=== PATIENT | female | born 2000 | race Hispanic/Latino ===

== ENCOUNTER 2023-01-27 15:43 | Inpatient (IN) | payer OTHER, SELFPAY ==
--- NOTE | 2023-01-27 16:13 | ER ---
Nurse's Notes [facility] Name: Sujey Cardoso Age: 22 yrs Sex: Female : 2000 Arrival Date: 01/27/2023 Time: 15:43 Bed 16 Private MD: Diagnosis: Perirectal abscess Presentation: 01/27 15:57 Chief complaint: Patient states: Rectal pain that began Monday evening. Pt was ss prescribed hydrocortisone cream Monday by PCP, but does not seem to be helping. Coronavirus screen: Client denies travel out of the [place] in the last 14 days. Ebola Screen: Patient denies exposure to infectious person. Patient denies travel to an Ebola-affected area in the 21 days before illness onset. Initial Sepsis Screen: Does the patient meet any 2 criteria? No. Patient's initial sepsis screen is negative. Does the patient have a suspected source of infection? No. Patient's initial sepsis screen is negative. Risk Assessment: Do you want to hurt yourself or someone else? Patient reports no desire to harm self or others. Onset of symptoms was January 24, 2023. 15:57 Method Of Arrival: Ambulatory ss 15:57 Acuity: DONN 4 ss Historical: - Allergies: 15:58 Zithromax; ss - Immunization history:: Adult Immunizations unknown. - Social history:: Smoking status: unknown. Screenin:53 [facility] ED Fall Risk Assessment (Adult) History of falling in the last 3 months, nj1 including since admission No falls in past 3 months (0 pts) Confusion or Disorientation No (0 pts) Intoxicated or Sedated No (0 pts) Impaired Gait No (0 pts) Mobility Assist Device Used No (0 pt) Altered Elimination No (0 pt) Score/Fall Risk Level 0 - 2 = Low Risk Oriented to surroundings, Maintained a safe environment, Hourly rounding (assess needs \T\ fall precautionary measures) done. Abuse screen: Denies threats or abuse. Denies injuries from another. Nutritional screening: No deficits noted. Tuberculosis screening: No symptoms or risk factors identified. Assessment: 16:49 General: Appears in no apparent distress. comfortable, Behavior is calm, cooperative, nj1 appropriate for age. Pain: Complains of pain in Rectum Pain currently is 3 out of 10 on a pain scale. at worst was 10 out of 10 on a pain scale. Alleviated by rest, Aggravated by exercise. Neuro: Level of Consciousness is awake, alert, obeys commands, Oriented to person, place, time, situation. Cardiovascular: Patient's skin is warm and dry. Respiratory: Airway is patent Respiratory effort is even, unlabored. GI: Reports since Monday Rectal pain. 17:45 Reassessment: Patient appears in no apparent distress at this time. No changes from [facility] previously documented assessment. Patient and/or family updated on plan of care and expected duration. Pain level reassessed. Patient is alert, oriented x 3, equal unlabored respirations, skin warm/dry/pink. 18:28 Reassessment: Patient appears in no apparent distress at this time. No changes from [facility] previously documented assessment. Patient and/or family updated on plan of care and expected duration. Pain level reassessed. Patient is alert, oriented x 3, equal unlabored respirations, skin warm/dry/pink. 19:30 Reassessment: Patient appears in no apparent distress at this time. Patient and/or nj1 family updated on plan of care and expected duration. Pain level reassessed. Patient is alert, oriented x 3, equal unlabored respirations, skin warm/dry/pink. Vital Signs: 15:57 BP 97 / 67; Pulse 91; Resp 14; Temp 98; Pulse Ox 98% ; ss 16:54 BP 106 / 57; Pulse 77; Resp 16; Pulse Ox 100% ; Pain 3/10; nj1 18:15 BP 119 / 66; Pulse 81; Resp 16; Pulse Ox 100% ; Pain 6/10; nj1 19:30 BP 116 / 60; Pulse 77; Resp 17; Pulse Ox 100% on R/A; Pain 5/10; nj1 20:57 BP 103 / 58; Pulse 91; Resp 16; Temp 99(O); Pulse Ox 100% ; nj1 16:54 Pain Scale: Adult nj1 18:15 Pain Scale: Adult nj1 19:30 Pain Scale: Adult nj1 ED Course: 15:44 Patient arrived in ED. am2 15:48 Jony Castillo MD is Attending Physician. rn 15:49 Attending Physician role handed off by Jony Castillo MD rt 15:49 Ayo Olivera MD is Attending Physician. rt 15:58 Triage completed. ss 15:58 Arm band placed on right wrist. ss 15:59 Rubio, Aracelis, RN is Primary Nurse. nj1 16:38 Initial lab(s) drawn, by ne, sent to lab. Inserted saline lock: 22 gauge in left [facility] antecubital area, using aseptic technique. Blood collected. 16:38 Test, Serum Sent. mb4 16:38 CMP Sent. 4 16:38 CBC with Diff Sent. 4 16:53 Provided Education on: fall precautions. nj1 16:53 Patient has correct armband on for positive identification. Bed in low position. Call [facility] light in reach. 17:43 CT Abd/Pelvis - IV Contrast Only In Process Unspecified. EDMS 18:08 Rom Peterson MD is Hospitalizing Provider. rt 18:27 Ptt, Activated Sent. 4 18:27 Protime (+inr) Sent. 4 18:27 Lactate w/ 2H reflex if indic. Sent. [facility] 20:20 No provider procedures requiring assistance completed. Patient admitted, IV remains in [facility] place. Administered Medications: 18:28 Drug: NS 0.9% IV 1000 ml Route: IV; Rate: 1 bolus; Site: left antecubital; [facility] 20:00 Follow up: Response: No adverse reaction; IV Status: Completed infusion; IV Intake: [facility] 1000ml 19:14 Drug: Piperacillin-Tazobactam IVPB 3.375 grams Route: IVPB; Infused Over: 60 mins; [facility] Site: left antecubital; 21:15 Follow up: Response: No adverse reaction; IV Status: Infusion continued upon admission; [facility] IV Intake: 50ml Medication: 20:20 VIS not applicable for this client. [facility] Intake: 20:00 IV: 1000ml; Total: 1000ml. [facility] 21:15 IV: 50ml; Total: 1050ml. [facility] Outcome: 16:12 Discharge ordered by . rt 18:08 Decision to Hospitalize by Provider. rt 21:16 Admitted to Tele accompanied by tech, via wheelchair, room 408, Report called to Nurse tati Nicole 21:16 Condition: stable 21:16 Instructed on the need for admit. 21:16 Patient left the ED. [facility] Signatures: Dispatcher [employer] EDAZ Jony Castillo MD MD rn Blanchard, Shelby, RN RN Connie Aguilar am2 Angeli [id number] Ayo Olivera MD MD rt Aracelis Bergeron RN RN nj1 Corrections: (The following items were deleted from the chart) 18:28 18:15 Pulse 81bpm; Pulse Ox 100%; nj1 nj1 18:29 18:15 Pulse 81bpm; Resp 16bpm; Pulse Ox 100%; Pain 6, Adult; nj1 nj1
--- NOTE | 2023-01-27 16:13 | EDPHYS ---
Physician Documentation [facility] Name: Sujey Cardoso Age: 22 yrs Sex: Female : 2000 Arrival Date: 01/27/2023 Time: 15:43 Bed 16 Private MD: ED Physician Ayo Olivera HPI: 01/27 17:45 This 22 yrs old Female presents to ER via Ambulatory with complaints of Rectal rt Pain. 17:45 Patient presents to the ED with rectal pain since Monday. She did state that she rt noticed a bump at that area. Was prescribed a topical corticosteroid, states no relief to that. Pain is worsened since that time. Denies fever, chills. She states that is difficult for her to sit down due to the pain. Symptoms are aching nature, nonradiating, moderate severity, no other aggravating alleviating factors.. Historical: - Allergies: 15:58 Zithromax; ss - Immunization history:: Adult Immunizations unknown. - Social history:: Smoking status: unknown. ROS: 17:45 Constitutional: Negative for fever, chills, and weight loss, Cardiovascular: Negative rt for chest pain, palpitations, and edema, Respiratory: Negative for shortness of breath, cough, wheezing, and pleuritic chest pain, Skin: Negative for injury, rash, and discoloration, Neuro: Negative for headache, weakness, numbness, tingling, and seizure, Psych: Negative for depression, anxiety, suicide ideation, homicidal ideation, and hallucinations. 17:45 Abdomen/GI: Positive for Rectal pain, constipation. 17:45 : Exam: 17:45 Constitutional: This is a well developed, well nourished patient who is awake, alert, rt and in no acute distress. Head/Face: Normocephalic, atraumatic. Chest/axilla: Normal chest wall appearance and motion. Nontender with no deformity. No lesions are appreciated. Cardiovascular: Regular rate and rhythm with a normal S1 and S2. No gallops, murmurs, or rubs. Normal PMI, no JVD. No pulse deficits. Respiratory: Lungs have equal breath sounds bilaterally, clear to auscultation and percussion. No rales, rhonchi or wheezes noted. No increased work of breathing, no retractions or nasal flaring. Skin: Warm, dry with normal turgor. Normal color with no rashes, no lesions, and no evidence of cellulitis. MS/ Extremity: Pulses equal, no cyanosis. Neurovascular intact. Full, normal range of motion. Neuro: Awake and alert, GCS 15, oriented to person, place, time, and situation. Cranial nerves II-XII grossly intact. Motor strength 5/5 in all extremities. Sensory grossly intact. Cerebellar exam normal. Normal gait. Psych: Awake, alert, with orientation to person, place and time. Behavior, mood, and affect are within normal limits. 17:45 Abdomen/GI: No abdominal tenderness, small external hemorrhoid, no palpable internal hemorrhoids, brown hard stool in rectal vault. Vital Signs: 15:57 BP 97 / 67; Pulse 91; Resp 14; Temp 98; Pulse Ox 98% ; ss 16:54 BP 106 / 57; Pulse 77; Resp 16; Pulse Ox 100% ; Pain 3/10; nj1 18:15 BP 119 / 66; Pulse 81; Resp 16; Pulse Ox 100% ; Pain 6/10; nj1 19:30 BP 116 / 60; Pulse 77; Resp 17; Pulse Ox 100% on R/A; Pain 5/10; nj1 20:57 BP 103 / 58; Pulse 91; Resp 16; Temp 99(O); Pulse Ox 100% ; nj1 16:54 Pain Scale: Adult nj1 18:15 Pain Scale: Adult nj1 19:30 Pain Scale: Adult nj1 MDM: 15:48 Patient medically screened. rn 18:08 Differential diagnosis: hemorrhoids, abscess. Data reviewed: vital signs, nurses notes, rt lab test result(s), radiologic studies. Consideration of Admission/Observation Patient was admitted/placed on observation. Management of patient was discussed with the following: [employer]: Discussed with surgery on-call, recommends antibiotics, will operate in the morning. Counseling: I had a detailed discussion with the patient and/or guardian regarding: the historical points, exam findings, and any diagnostic results supporting the discharge/admit diagnosis, lab results, radiology results, the need for further work-up and treatment in the hospital. 18:09 ED course: Patient's initial presentation was thought to be due to a hemorrhoid as rt opposed to an infectious etiology, once CT scan resulted showing an abscess, lactate, blood cultures were ordered, antibiotics to be given.. 01/27 16:21 Order name: CBC with Diff; Complete Time: 17:29 rt 01/27 16:21 Order name: CMP; Complete Time: 17:29 rt 01/27 16:21 Order name: Test, Serum; Complete Time: 17:29 rt 01/27 18:07 Order name: Blood Culture Adult (2) rt 01/27 18:07 Order name: Lactate w/ 2H reflex if indic. rt 01/27 18:07 Order name: Protime (+inr) rt 01/27 18:07 Order name: Ptt, Activated rt 01/27 17:32 Order name: CT Abd/Pelvis - IV Contrast Only; Complete Time: 17:53 rt 01/27 18:07 Order name: EKG; Complete Time: 18:08 rt 01/27 18:07 Order name: Cardiac monitoring; Complete Time: 19:19 rt 01/27 18:07 Order name: EKG - Nurse/Tech; Complete Time: 19:19 rt 01/27 18:07 Order name: IV Saline Lock - Large Bore; Complete Time: 18:14 rt 01/27 18:07 Order name: Labs collected and sent; Complete Time: 18:28 rt 01/27 18:07 Order name: O2 Per Protocol; Complete Time: 18:14 rt 01/27 18:07 Order name: O2 Sat Monitoring; Complete Time: 18:14 rt 01/27 18:07 Order name: Vital Signs; Complete Time: 18:28 rt Administered Medications: 18:28 Drug: NS 0.9% IV 1000 ml Route: IV; Rate: 1 bolus; Site: left antecubital; [facility] 20:00 Follow up: Response: No adverse reaction; IV Status: Completed infusion; IV Intake: nj1 1000ml 19:14 Drug: Piperacillin-Tazobactam IVPB 3.375 grams Route: IVPB; Infused Over: 60 mins; [facility] Site: left antecubital; 21:15 Follow up: Response: No adverse reaction; IV Status: Infusion continued upon admission; [facility] IV Intake: 50ml Disposition Summary: 01/27/23 18:08 Hospitalization Ordered Hospitalization Status: Observation rt Provider: Rom Peterson rt Location: Telemetry/MedSurg (observation)(01/27/23 18:08) rt Condition: Stable(07/21/23 18:08) rt Problem: new(01/27/23 18:08) rt Symptoms: are unchanged(01/27/23 18:08) rt Bed/Room Type: Standard rt Room Assignment: 408(01/27/23 19:02) cg Diagnosis - Perirectal abscess rt Forms: - Medication Reconciliation Form rt - SBAR form rt Signatures: Dispatcher [employer] Jony Mena MD MD rn Blanchard, Shelby, RN RN ss Chrissy Cardoso RN RN cg Ayo Olivera MD MD rt Aracelis Bergeron RN RN nj1 Corrections: (The following items were deleted from the chart) 16:20 16:12 Home rt rt 16:20 16:12 new rt rt 16:20 16:12 have improved rt rt 16:20 16:12 Stable rt rt 16:20 16:12 Unspecified hemorrhoids rt rt 17:41 16:22 Pelvis W/Cont+CT.RAD.BRZ ordered. EDME EDMS 19:02 18:08 rt cg
[2023-01-27 16:50] LABS: Absolute Lymphocytes (CBC) 1.6 K/uL (0.7-4.9); Hematocrit 38.6 % (36.0-45.0); Lymphocytes % 9.5 % (15.3-44.8); MPV 8.1 fL (7.6-11.3); RBC Red Blood Cell Count 4.39 M/uL (3.86-4.86)
[2023-01-27 17:03] LABS: Albumin 4.3 g/dL (3.4-5.0); Bilirubin Total 0.6 mg/dL (0.2-1.0); Potassium 3.7 mEq/L (3.5-5.1); Protein, Total 7.9 g/dL (6.4-8.2)
--- NOTE | 2023-01-27 17:51 | RAD REPORT ---
EXAM DESCRIPTION: CTAbdomen Pelvis W Contrast - 01/27/2023 5:41 pm CLINICAL HISTORY: Abdominal pain. rectal pain COMPARISON: CT ABD PELVIS W CONTRAST dated 12/18/2012 TECHNIQUE: Biphasic CT imaging of the abdomen and pelvis was performed with 100 ml non-ionic IV cont rast. All CT scans are performed using dose optimization technique as appropriate and may include automated exposure control or mA/KV adjustment according to patient size. FINDINGS: The lung bases are clear. The liver, spleen, pancreas, adrenal glands and kidneys are within normal limits. No bowel obstruction, free air, free fluid or intra-abdominal abscess. The appendix is normal. No e vidence of significant lymphadenopathy. 16 x 7 mm right perirectal fluid collection likely a small ab scess. No suspicious bony findings. IMPRESSION: Small right perirectal abscess.
[2023-01-27] MEDS ORDERED: NA CHLORIDE 0.9% 1,000 ML ONE (18:32)
[2023-01-27 18:36] LABS: Protime INR 1.14
--- NOTE | 2023-01-27 18:47 | P.HP ---
Certification for Inpatient Patient admitted to: Observation With expected LOS: <2 Midnights Patient will require the following post-hospital care: None Practitioner: I am a practitioner with admitting privileges, knowledge of patient current condition, hospital course, and medical plan of care. Services: Services provided to patient in accordance with Admission requirements found in Title 42 Section 412.3 of the Code of Federal Regulations Patient History Date of Service: 01/27/23 Reason for admission: Perianal abscess, sepsis History of Present Illness: 22-year-old otherwise healthy female presents emergency department with chief complaint of rectal pain which has been ongoing since 01/24/2023. She reports previous problems with hemorrhoids but usually resolves spontaneously this is not been improving but getting worse the past few days. She was evaluated in the emergency department her labs are significant for leukocytosis white blood cell count is 16, her heart rate was greater than 90 therefore meeting sepsis criteria. Blood cultures and lactate have been obtained and are pending, ED physician spoke to general surgery who plans for surgical incision and drainage tomorrow morning. Patient be admitted for perianal abscess. Allergies No Known Allergies Allergy (Verified 06/02/12 11:32) Home Medications: Esomeprazole Mag Trihydrate [Nexium] 40 mg PO DAILY #30 capsule.dr 12/19/12 Ibuprofen [Motrin] 800 mg PO TID PRN #30 tablet 12/19/12 Polyethylene Glycol 3350 [Miralax] 1 cap PO DAILY #0 powd.pack 12/19/12 - Past Medical/Surgical History Diabetic: No -: none -: none Psychosocial/ Personal History: Employed departmental buyer, lives at home with family. - Family History Family History: Reviewed- Non-Contributory - Social History Smoking Status: Never smoker Alcohol use: No CD- Drugs: No Caffeine use: Yes Place of Residence: Home Review of Systems 10-point ROS is otherwise unremarkable Gastrointestinal: Other (rectal pain) Physical Examination - Physical Exam General: Alert, In no apparent distress, Oriented x3 HEENT: Atraumatic, PERRLA, Mucous membr. moist/pink, EOMI, Sclerae nonicteric Neck: Supple, 2+ carotid pulse no bruit, No LAD, Without JVD or thyroid abnormality Respiratory: Clear to auscultation bilaterally, Normal air movement Cardiovascular: Regular rate/rhythm, Normal S1 S2 Capillary refill: <2 Seconds Gastrointestinal: Normal bowel sounds, Other (Small perirectal abscess noted) Musculoskeletal: No tenderness Integumentary: No rashes Neurological: Normal speech, Normal strength at 5/5 x4 extr, Normal tone, Normal affect Lymphatics: No axilla or inguinal lymphadenopathy - Studies Laboratory Data (last 24 hrs) 01/27/23 16:34: Sodium 139, Potassium 3.7, BUN 10, Creatinine 0.74, Glucose 98, Total Bilirubin 0.6, AST 13 L, ALT 17, Alkaline Phosphatase 70 01/27/23 16:34: WBC 16.30 H, Hgb 12.5, Hct 38.6, Plt Count 291 Assessment and Plan - Plan Assessment: Sepsis secondary to perianal abscess Plan: Sepsis secondary to perianal abscess Blood cultures, lactate obtained. General surgery to see patient in the orning. N.p.o. after midnight. Antibiotics with Unasyn. DVT PPX: SCD Code status: Full Discharge Plan: Home Plan to discharge in: 24 Hours - Advance Directives Does patient have a Living Will: No Does patient have a Durable POA for Healthcare: No - Code Status/Comfort Care Code Status Assessed: Yes (Full code) Critical Care: No Time Spent Managing Pts Care (In Minutes): 55
[2023-01-27] MEDS ORDERED: PIPERACIL/TAZO 3.375 GM VIAL IV ONE (19:02)
[2023-01-27] MEDS ORDERED: NA CHLORIDE 0.9% 100 ML ONE (19:03)
[2023-01-27] MEDS ORDERED: MORPHINE 2 MG/ML SYR IV PRN (21:23)
[2023-01-27] MEDS ORDERED: ACETAMINOPHEN 500 MG TAB PO PRN (21:23)
[2023-01-27 21:37] VITALS: BMI 28.1
[2023-01-27] MEDS: NA CHLORIDE 0.9% 1,000 ML IV SCH (22:33)
[2023-01-27] MEDS: HYDROCODONE/APAP 5/325 MG TAB PO PRN (22:33)
[2023-01-27] MEDS: AMPICILLIN/SULBACT 1.5 GM in NA CHLORIDE 0.9% 100 ML IVPB SCH (23:20)
[2023-01-28 05:20] LABS: Absolute Lymphocytes (CBC) 1.5 K/uL (0.7-4.9); Hematocrit 33.2 % (36.0-45.0); Lymphocytes % 8.8 % (15.3-44.8); MCV 87.7 fL (80-100); MPV 8.4 fL (7.6-11.3); RBC Red Blood Cell Count 3.79 M/uL (3.86-4.86)
[2023-01-28 05:38] LABS: Potassium 3.7 mEq/L (3.5-5.1)
[2023-01-28] MEDS: AMPICILLIN/SULBACT 1.5 GM in NA CHLORIDE 0.9% 100 ML IVPB SCH (06:00)
[2023-01-28] MEDS: ONDANSETRON 4 MG/2 ML VIAL IV PRN ×2 (06:59→12:58)
[2023-01-28] MEDS: NA CHLORIDE 0.9% 1,000 ML IV SCH ×2 (07:23→19:51)
[2023-01-28] MEDS ORDERED: SUCCINYLCHOLINE 20 MG/ML (10 ML) IV ONE (08:54)
[2023-01-28] MEDS ORDERED: MIDAZOLAM HCL 2 MG/2 ML INJ ONE (08:56)
[2023-01-28] MEDS ORDERED: FENTANYL CITR 100 MCG/2 ML ONE (08:56)
[2023-01-28] MEDS ORDERED: propofoL 200 MG/20 ML VIAL IV ONE (08:56)
[2023-01-28] MEDS ORDERED: POTASSIUM CL SA 10 MEQ TAB PO ONE (09:00)
--- NOTE | 2023-01-28 09:00 | P.CNS ---
Date of Consult: 01/28/23 Reason for consult: Rectal pain History of present illness: Patient is a 22-year-old female who has had 4-day history of increasing right-sided perirectal pain. She went to her PCP and a cream was prescribed which did not help. She has no fever or chills. She has no discharge. She has had hemorrhoids in the past. She denies any blood per rectum. Patient denies any colorectal malignancy in her family. Review of systems: Patient denies sore throat, runny nose, cough, headache, dizziness, chest pain, fever or chills. Past medical history: Negative Past surgical history: Negative Allergies: Azithromycin Social history: Patient denies smoking drinks alcohol occasionally Family history: Coronary artery disease Vital signs: Stable, afebrile Physical exam: Awake, alert and oriented x3 Head and neck exam: No masses Chest: Clear Heart: S1-S2 Abdomen: Soft, nondistended, nontender, positive bowel sounds Extremity: Neurovascular intact, nontender Neuro: Nonfocal Rectal: Painful exam, right-sided induration anteriorly with fluctuance, redness and warmth Diagnostic data: Leukocytosis with abscess seen on CT scan Assessment: Perirectal abscess Plan/recommendation: Admit, n.p.o., IV fluids, IV antibiotics and to the OR for exam under anesthesia, proctoscopy and incision, drainage and debridement right sided perirectal abscess. Patient understands risk, benefits and alternatives and agrees to procedure. CC:
[2023-01-28] MEDS ORDERED: NA CHLORIDE 0.9% 1,000 ML ONE (09:07)
[2023-01-28] MEDS ORDERED: CEFOXITIN SODIUM 1 GM/VIAL ONE (09:12)
[2023-01-28] MEDS: FENTANYL CITR 100 MCG/2 ML ONE ×4 (10:01→10:16)
[2023-01-28] MEDS ORDERED: KETOROLAC 30 MG/ML INJ ONE (10:09)
--- NOTE | 2023-01-28 10:18 | P.OP ---
Date of Service: 01/28/23 Preop diagnosis: Right anterior perirectal abscess Postop diagnosis: Same Procedure performed: Examiner anesthesia, proctoscopy, incision, drainage and debridement of right anterior perirectal abscess Surgeon: Romie Bhat MD Web Publisher: None Estimated blood loss: Minimal Specimen: Pus Findings: As above Anesthesia: General Complications: None Drains: None Fluids and blood products: Nonapplicable Disposition: Recovery room Operative note: Patient brought to the OR and placed in the supine position. General anesthesia begun. Patient placed in the lithotomy position. Patient prepped and draped in the usual sterile fashion. Exam anesthesia revealed a 3 x 4 cm area of erythema warmth induration and central fluctuance to the right anterior perirectal region. Proctoscopy did not reveal any evidence of disease. Marcaine 0.5% infiltrated locally. Then 15 blade used to make approximately a 3 cm transverse incision in the right anterior location of the abscess. Subcutaneous tissue divided. Pus under pressure evacuated. Cultures done. Necrotic tissue debrided. Wound irrigated and bleeding controlled cautery. Wet-to-dry normal saline dressing change applied. Patient the procedure in stable condition taken to recovery room in good general condition. CC:
[2023-01-28] MEDS ORDERED: HYDROMORPHONE HCL 1 MG/ML INJ IV PRN (10:28)
[2023-01-28] MEDS ORDERED: GLYCOPYRROLATE 0.2 MG/ML SYR ONE (11:24)
[2023-01-28] MEDS ORDERED: NEOSTIGMINE 1 MG/ML -10 ML VIAL ONE (11:26)
[2023-01-28] MEDS ORDERED: Mastisol Adhesive Liq ONE (11:32)
[2023-01-28] MEDS: PIPER TAZO 3.375 GM in NA CHLORIDE 0.9% 100 ML IV SCH (16:10)
--- NOTE | 2023-01-28 18:12 | P.PN ---
Subjective Date of Service: 01/28/23 Chief Complaint: Perianal abscess, sepsis She underwent proctoscopy, incision, drainage and debridement of right anterior perirectal abscess this morning. She tolerated the procedure well, but has been experiencing post-operative nausea. She denies any chest pain, shortness of breath, or palpitations. Review of Systems 10-point ROS is otherwise unremarkable Gastrointestinal: Nausea Integumentary: Other (perirectal abscess) Physical Examination - Vital Signs Temperature: 98.4 F Blood Pressure: 109/67 Pulse: 90 Respirations: 16 Pulse Ox (%): 100 - Physical Exam General: Alert, In no apparent distress, Oriented x3 HEENT: Atraumatic, Mucous membr. moist/pink, Sclerae nonicteric Neck: Supple Respiratory: Clear to auscultation bilaterally, Normal air movement Cardiovascular: No edema, Regular rate/rhythm, Normal S1 S2, No gallops, No rubs, No murmurs Gastrointestinal: Normal bowel sounds, Soft and benign, Non-distended, No tenderness, No rebound, No guarding Musculoskeletal: No clubbing Neurological: Normal speech, Normal affect - Studies Laboratory Data (last 24 hrs) 01/28/23 04:43: Sodium 137, Potassium 3.7, BUN 8, Creatinine 0.65, Glucose 86 01/28/23 04:43: WBC 17.60 H, Hgb 10.9 L D, Hct 33.2 L, Plt Count 241 01/27/23 18:20: PT 12.5, INR 1.14, APTT 33.8 Assessment And Plan - Plan # Sepsis secondary to Perirectal Abscess She met SIRS criteria based on HR > 90 bpm and WBC > 12,000, and the suspected source is perirectal abscess. - CT abdomen/pelvis = "Small right perirectal abscess." - General Surgery consulted and spoke with Dr. Bhat - s/p proctoscopy, incision, drainage and debridement of right anterior perirectal abscess earlier today - Sepsis order set was initiated - Initial Lactate was 0.6 - Blood cultures drawn before antibiotics were given - Broad spectrum antibiotics started: Piperacillin-Tazobactam - In regards to fluids: - 30 mL/kg of IV fluids was not administered given SBP > 90, MAP > 65, lactic acid < 4 Rom Peterson M.D.
[2023-01-28] MEDS ORDERED: PROMETHAZINE INJ 25 MG/ML AMP IV PRN (18:13)
[2023-01-28 20:52] VITALS: O2SAT 100
[2023-01-29] MEDS: HYDROCODONE/APAP 5/325 MG TAB PO PRN (00:55)
[2023-01-29] MEDS: PIPER TAZO 3.375 GM in NA CHLORIDE 0.9% 100 ML IV SCH ×2 (00:55→08:34)
[2023-01-29] MEDS: NA CHLORIDE 0.9% 1,000 ML IV SCH (03:16)
[2023-01-29 04:54] LABS: Absolute Lymphocytes (CBC) 1.5 K/uL (0.7-4.9); Hematocrit 30.2 % (36.0-45.0); Lymphocytes % 12.9 % (15.3-44.8); MCV 87.2 fL (80-100); MPV 7.8 fL (7.6-11.3); RBC Red Blood Cell Count 3.46 M/uL (3.86-4.86)
--- NOTE | 2023-01-29 08:59 | P.DS ---
Admission Date: 01/27/23 Discharge Date: 01/29/23 Disposition: ROUTINE DISCHARGE Discharge Condition: GOOD Reason for Admission: Perianal abscess, sepsis Consultations: 1. General Surgery Procedures: - 01/28/2023 - Proctoscopy, Incision, Drainage and Debridement of Right Anterior Perirectal Abscess Hospital Course: DIAGNOSES: # Sepsis secondary to Perirectal Abscess HOSPITAL COURSE: Ms. Sujey Cardoso is a 22 year old female with no reported past medical history significant who was admitted to the [facility] on 01/27/2023 for a perirectal abscess. She was admitted to the Medicine service. Upon further evaluation, she was found to have sepsis secondary to a perirectal abscess. General Surgery was consulted and she was evaluated by Dr. Bhat. On 01/28/2023, she underwent proctoscopy, incision, drainage and debridement of right anterior perirectal abscess earlier today. She tolerated the procedure well, without any apparent complications. She was monitored in the hospital on IV antibiotics, with improvement in her symptoms. This morning, her symptoms improved and she requested to be discharged home. On 01/29/2023, she was seen on morning rounds and deemed medically stable for discharge. She was discharged with instructions to schedule follow-up appointments with her PCP (LEANDRA Neumann) and with General Surgery (Dr. Bhat). She was provided prescriptions for amoxicillin-clavulanate and hydrocodone- acetaminophen. She was given the opportunity to ask questions and reported no further questions. Furthermore, all questions were answered to the best of my ability. Prior to the controlled substance prescription, a PDMP review was conducted. Over the last 2 years, she has received 0 controlled prescriptions from 0 providers to 0 pharmacies. Her opioid overdose risk score is 0. A copy of this discharge summary will be sent to the above providers to facilitate continuity of care. Today, I personally spent 20 minutes on her case, of which greater than 50% of the time was spent in patient education, counseling, and coordination of care as described above. - Physical Exam General: Alert, In no apparent distress, Oriented x3 HEENT: Atraumatic, Mucous membr. moist/pink, Sclerae nonicteric Respiratory: Clear to auscultation bilaterally, Normal air movement Cardiovascular: No edema, Regular rate/rhythm, No murmurs Gastrointestinal: Soft, Non-distended, No tenderness Musculoskeletal: No clubbing Neurological: Normal speech, Normal affect Vital Signs/Physical Exam: Temp Pulse Resp BP Pulse Ox 98.0 F 62 16 102/52 L 99 01/29/23 04:00 01/29/23 04:00 01/29/23 04:00 01/29/23 04:00 01/29/23 04:00 Laboratory Data at Discharge: WBC 11.40 thou/uL (4.3-10.9) H 01/29/23 04:44 Hgb 10.3 g/dL (12.0-15.0) L 01/29/23 04:44 Hct 30.2 % (36.0-45.0) L 01/29/23 04:44 Plt Count 239 thou/uL (152-406) 01/29/23 04:44 PT 12.5 SECONDS (9.5-12.5) 01/27/23 18:20 INR 1.14 01/27/23 18:20 APTT 33.8 SECONDS (24.3-36.9) 01/27/23 18:20 Sodium 137 mEq/L (136-145) 01/28/23 04:43 Potassium 3.7 mEq/L (3.5-5.1) 01/28/23 04:43 BUN 8 mg/dL (7-18) 01/28/23 04:43 Creatinine 0.65 mg/dL (0.55-1.02) 01/28/23 04:43 Glucose 86 mg/dL (74-106) 01/28/23 04:43 Total Bilirubin 0.6 mg/dL (0.2-1.0) 01/27/23 16:34 AST 13 U/L (15-37) L 01/27/23 16:34 ALT 17 U/L (13-56) 01/27/23 16:34 Alkaline Phosphatase 70 U/L (45-117) 01/27/23 16:34 Home Medications: Cetirizine HCl [Zyrtec] 10 mg PO BEDTIME PRN 01/28/23 Diphenhydramine [Benadryl*] 50 mg PO BEDTIME PRN PRN 01/28/23 Loratadine [Claritin*] 10 mg PO DAILY PRN 01/28/23 Amox/Clavulanate [Augmentin 875-125 Tab] 875 mg PO BID 10 Days #20 tab 01/29/23 Hydrocodone/Acetaminophen [Hydrocodon-Acetaminophen 5-325] 1 tab PO Q6HP PRN 3 Days #12 tab 01/29/23 New Medications: Hydrocodone/Acetaminophen [Hydrocodon-Acetaminophen 5-325] 1 tab PO Q6HP PRN 3 Days #12 tab PRN Reason: Pain Scale 5-7 (Moderate) Amox/Clavulanate [Augmentin 875-125 Tab] 875 mg PO BID 10 Days #20 tab Physician Discharge Instructions: 1. Please call and schedule a follow-up appointment with your PCP (LEANDRA Neumann) in 3-5 days - Your blood work showed mild anemia. Please discuss this with your PCP for further evaluation 2. Please call and schedule a follow-up appointment with General Surgery (Dr. Bhat) in 5-7 days - Please do not drive or operate heavy machinery while taking pain medication Wet-to-dry normal saline dressing changes Teach patient and family No heavy lifting for 2 weeks Follow-up my office, 1 week call for appointment Antibiotics and pain medicine per the hospitalist Diet: Regular Activity: Ad caleb Followup: Romie Bhat MD [ACTIVE - CAN ADMIT] - 1-2 Weeks Leanne Neumann PA [Primary Care Provider] - Time spent managing pt's care (in minutes): 20
[2023-01-29 09:15] VITALS: BP 107/55; TEMP 98.7
--- NOTE | 2023-01-29 11:12 | PN ---
Date of Progress Note: 01/29/2023 Subjective: The patient is awake, alert. No complaints. Objective: Vital Signs: Stable, afebrile. Extremities: Dressing is clean, dry, and intact. There is no surrounding erythema, warmth, or edema. Laboratory Data: Gram stain showing the patient to have likely a strep organism. White count is yunior n to 11.4. Assessment: Status post incision, drainage and debridement of perirectal abscess. Recommendations: The patient cleared for discharge from Surgery's standpoint. The patient will be g iven Augmentin, dressing orders, and then follow up with me in my office. /MODL Voice ID: [id number] Report ID: [id number]
--- NOTE | 2023-01-31 15:05 | EKG ---
Test Date: 2023-01-27 Test Time: 19:06:28 Education Site Manager: CAORLINE MEASUREMENT RESULTS: Intervals: Rate: 71 UT: 118 QRSD: 76 QT: 380 QTc: 412 Thompson: P: 31 UT: 118 QRS: 64 T: 28 INTERPRETIVE STATEMENTS: Normal sinus rhythm Normal ECG No previous ECG available for comparison Electronically Signed On 01-31-23 14:58:37 CDT by Michael Marinelli
== END 2023-01-29 12:33 | disposition home or self-care (01) | DRG 854 ==
LOC: ER 15:43 → ERHOLD 18:16 → 4TH 20:21 → OBSVTOIN 01-28 08:50
PROVIDERS: ADMIT Internal Medicine; ATTEND Internal Medicine
PROC: 0JB70ZZ Excision of Back Subcutaneous Tissue and Fascia, Open Approach (ICD-10-PCS; principal; 2023-01-28 09:00)
DX: A41.9 Sepsis, unspecified organism (principal); K61.1 Rectal abscess; K59.00 Constipation, unspecified; Z88.1 Allergy status to other antibiotic agents; Z79.899 Other long term (current) drug therapy
CPT/HCPCS: 36415; 74177; 80048; 80053; 83036; 83605; 84703; 85025; 85610; 85730; 87040; 87070; 87075; 87077; 87186; 87205; 88304; 93005; 96361; 96365; 96366; 99285; G0378; J0295; J0694; J2250; J2270; J2405; J2543; J2550; J2704; J2710; J3010; J7030; Q9967

== ENCOUNTER 2024-07-03 12:08 | Emergency (ER) | payer SELFPAY ==
--- OUTSIDE RECORDS SUMMARY | 2024-07-03 12:11 | XMS REPORT | Continuity of Care Document ---
Author Name Unknown Address [address] [place] [address] [facility] Address [address] [place] [address] Care Team Providers Care Director Of Quality Name Role Phone Unavailable Unavailable Unavailable Encounters Start Date/Time End Date/Time Encounter Type Admission Type Attending [facility] Facility Care Department Encounter ID Source 2024-06-25 16:01:09 2024-06-25 16:01:09 Outpatient [facility] [id number] Damion Craig 2024-06-20 13:30:19 2024-06-20 13:30:19 Outpatient [facility] S[facility] [id number] Damion Craig 2024-06-13 09:16:34 2024-06-13 09:16:34 Outpatient [facility] SFA [id number] Damion Craig 2024-06-10 10:07:09 2024-06-10 10:07:09 Outpatient SFA SFA [id number] Damion Craig 2024-05-23 15:38:16 2024-05-23 15:38:16 Outpatient [facility]FA SFA [id number] Damion Craig 2024-04-02 16:22:07 2024-04-02 16:22:07 Outpatient [facility]FA SFA [id number] Damion Craig 2024-02-28 11:37:35 2024-02-28 11:37:35 Outpatient SFA SFA [id number] Damion Craig 2023-04-05 09:40:03 2023-04-05 09:40:03 Outpatient SFA SFA [id number] Damion Craig 2023-02-01 10:43:39 2023-02-01 10:43:39 Outpatient [facility] [id number] Damion Craig 2023-01-25 08:49:47 2023-01-25 08:49:47 Outpatient [facility] [id number] Damion Craig 2023-01-19 11:48:43 2023-01-19 11:48:43 Outpatient [facility] [id number] Damion Craig 2023-01-09 08:46:11 2023-01-09 08:46:11 Outpatient [facility] [id number] Damion Craig 2023-01-08 08:19:57 2023-01-08 08:19:57 Outpatient [facility] [id number] Damion Craig 2022-12-21 11:22:08 2022-12-21 11:22:08 Outpatient [facility] [id number] Damion Craig 2022-11-19 10:49:29 2022-11-19 10:49:29 Outpatient [facility] [id number] Damion Craig Results Test Description Test Time Test Comments Results Result Co mments Source [id number] 06:13:58* Test Item Value Reference Range Interpretation Comme nts TRANSFERRIN (test code = 4936) 333 MG/DL 200-360 COMPREHENSIVE METABOLIC [id number] 05:54:00* Test Item Value Reference Range Interpretation Comme nts GLUCOSE (test code = 2217) 92 MG/DL 70-99 BUN (test code = 2208) 11 MG/DL 6-20 CREATININE (test code = 2214) 0.74 MG/DL 0.60-1.30 eGFR (2020 CKD-EPI) (test code = [address]28) 115 ML/MIN/1.73 >60 CALC BUN/CREAT (test code = 2235) 15 RATIO 6-28 SODIUM (test code = 2231) 139 MEQ/L 133-146 POTASSIUM (test code = 2228) 3.9 MEQ/L 3.5-5.4 CHLORIDE (test code = 2215) 101 MEQ/L 95-107 CARBON DIOXIDE (test code = 2205) 25 MEQ/L 19-31 CALCIUM (test code = 2209) 9.9 MG/DL 8.5-10.5 PROTEIN, TOTAL (test code = 2229) 7.6 G/DL 6.1-8.3 ALBUMIN (test code = 1) 4.9 G/DL 3.5-5.2 CALC GLOBULIN (test code = 2240) 2.7 G/DL 1.9-3.7 CALC A/G RATIO (test code = 2234) 1.8 RATIO 1.0-2.6 BILIRUBIN, TOTAL (test code = 220) 0.3 MG/DL <=1.2 ALKALINE PHOSPHATASE (test code = 220) 76 U/L 40-112 AST (test code = 2218) 16 U/L 9-40 ALT (test code = 221) 18 U/L 5-40 IRON, [id number] 05:54:00* Test Item Value Reference Range Interpretation Comme [facility] IRON, SERUM (test code = 2222) 58 UG/DL 37-145 VITAMIN D, 25 [id number] 05:53:29* Test Item Value Reference Range Interpretation Comme [facility] VITAMIN D, 25 OH (test code = 4958) 18 NG/ML SEE BELOW L NOTE: 25-HYDR OXYVITAMIN D ASSAY INCLUDES 25-HYDROXYVITAMIN D2 AND D3. INTERPRETIVE RANGES PEDIATRIC (<17 YEARS) . . . . . . . . . . . NG/ML 20-100ADULT: INSUFFICIENT . . . . . . . . . . . . . . NG/ML <20 SUBOPTIMAL . . . . . . . . . . . . . . . NG/ML 20-29 OPTIMAL . . . . . . . . . . . . . . . . . NG/ML 30-100 [id number] 05:53:12* Test Item Value Reference Range Interpretation Comme [facility] FERRITIN (test code = 2075) 19 NG/ML 13-200 UNLESS OTHERWISE INDICATED, ALL TESTING PERFORMED AT [facility] [address] [place] [address] SUSTAINABLE DESIGN COORDINATOR: TRAM LOBO M.D. CLIA NUMBER [id number] [place]. [id number] HEMOGLOBIN [id number] 04:57:18* Test Item Value Reference Range Interpretation Comme [facility] HEMOGLOBIN A1c (test code = 34001) 5.3 % 4.2-5.6 CBC W/AUTO DIFF WITH [id number] 03:50:32* Test Item Value Reference Range Interpretation Comme nts WBC (test code = 1001) 12.2 K/UL 3.5-11.0 H RBC (test code = 1002) 4.54 M/UL 3.80-5.40 HEMOGLOBIN (test code = 1003) 13.1 G/DL 11.5-15.5 HEMATOCRIT (test code = 1004) 40.2 % 34.0-45.0 MCV (test code = 1005) 88.5 fL 80.0-99.0 MCH (test code = 1006) 28.9 PG 25.0-33.0 MCHC (test code = 1007) 32.6 G/DL 31.0-36.0 RDW (test code = 1038) 12.8 % 11.5-15.0 NEUTROPHILS (test code = 1008) 66.7 % LYMPHOCYTES (test code = 1010) 23.9 % MONOCYTES (test code = 1011) 6.2 % EOSINOPHILS (test code = 1012) 2.2 % BASOPHILS (test code = 1013) 0.7 % IMMATURE GRANULOCYTES (test code = 1036) 0.3 % NUCLEATED RBCS (test code = 1065) 0.0 /100 WBC'S See_Comment [Automated messa ge] The system which generated this result transmitted reference range: 0.0. The reference range was not used to interpret this result as normal/abnormal. PLATELET COUNT (test code = 1015) 348 K/UL 130-400 ABSOLUTE NEUTROPHILS (test code = 1066) 8.10 K/UL 1.50-7.50 H ABSOLUTE LYMPHOCYTES (test code = 1067) 2.90 K/UL 1.00-4.00 ABSOLUTE MONOCYTES (test code = 1068) 0.75 K/UL 0.20-1.00 ABSOLUTE EOSINOPHILS (test code = 1040) 0.27 K/UL 0.00-0.50 ABSOLUTE BASOPHILS (test code = 1069) 0.09 K/UL 0.00-0.20 ABS IMMATURE GRANULOCYTES (test code = 1020) 0.04 K/UL 0.00-0.10 ABS NUCLEATED RBCS (test code = 55924) 0.00 K/UL 0.00-0.11 CBC W/AUTO DIFF WITH [id number] 03:00:50* Test Item Value Reference Range Interpretation Comme nts WBC (test code = 1001) 5.8 K/UL 3.5-11.0 RBC (test code = 1002) 4.63 M/UL 3.80-5.40 HEMOGLOBIN (test code = 1003) 13.6 G/DL 11.5-15.5 HEMATOCRIT (test code = 1004) 40.7 % 34.0-45.0 MCV (test code = 1005) 87.9 fL 80.0-99.0 MCH (test code = 1006) 29.4 PG 25.0-33.0 MCHC (test code = 1007) 33.4 G/DL 31.0-36.0 RDW (test code = 1038) 12.5 % 11.5-15.0 NEUTROPHILS (test code = 1008) 59.9 % LYMPHOCYTES (test code = 1010) 28.8 % MONOCYTES (test code = 1011) 7.8 % EOSINOPHILS (test code = 1012) 2.1 % BASOPHILS (test code = 1013) 1.2 % IMMATURE GRANULOCYTES (test code = 1036) 0.2 % NUCLEATED RBCS (test code = 1065) 0.0 /100 WBC'S See_Comment [Automated message] The system which generated this result transmitted reference range: 0.0. The reference range was not used to interpret this result as normal/abnormal. PLATELET COUNT (test code = 1015) 322 K/UL 130-400 ABSOLUTE NEUTROPHILS (test code = 1066) 3.48 K/UL 1.50-7.50 ABSOLUTE LYMPHOCYTES (test code = 1067) 1.67 K/UL 1.00-4.00 ABSOLUTE MONOCYTES (test code = 1068) 0.45 K/UL 0.20-1.00 ABSOLUTE EOSINOPHILS (test code = 1040) 0.12 K/UL 0.00-0.50 ABSOLUTE BASOPHILS (test code = 1069) 0.07 K/UL 0.00-0.20 ABS IMMATURE GRANULOCYTES (test code = 1020) 0.01 K/UL 0.00-0.10 ABS NUCLEATED RBCS (test code = 71202) 0.00 K/UL 0.00-0.11 UNLESS OTHER CALI INDICATED, ALL TESTING PERFORMED AT [facility] [address] [place] [id number] SUSTAINABLE DESIGN COORDINATOR: TRAM LOBO M.D. CLIA NUMBER [id number] [place] [id number] TSH, THIRD [id number] 06:48:56* Test Item Value Reference Range Interpretation Comme nts TSH, THIRD GENERATION (test code = 2821) 1.590 UIU/ML 0.400-4.100 UNLESS OTHERWISE INDICATED, ALL TESTING PERFORMED AT [facility] [address] [place] [address] SUSTAINABLE DESIGN COORDINATOR: TRAM LOBO M.D. CLIA NUMBER [id number] [place]. [id number] COMPREHENSIVE METABOLIC [id number] 05:41:32* Test Item Value Reference Range Interpretation Comme nts GLUCOSE (test code = 2217) 96 MG/DL 70-99 BUN (test code = 2208) 9 MG/DL 6-20 CREATININE (test code = 2214) 0.80 MG/DL 0.60-1.30 eGFR (2020 CKD-EPI) (test code = 19782) 105 ML/MIN/1.73 >60 CALC BUN/CREAT (test code = 2235) 11 RATIO 6-28 SODIUM (test code = 2231) 142 MEQ/L 133-146 POTASSIUM (test code = 2228) 3.9 MEQ/L 3.5-5.4 CHLORIDE (test code = 2215) 105 MEQ/L 95-107 CARBON DIOXIDE (test code = 2206) 25 MEQ/L 19-31 CALCIUM (test code = 2209) 9.8 MG/DL 8.5-10.5 PROTEIN, TOTAL (test code = 2229) 7.2 G/DL 6.1-8.3 ALBUMIN (test code = 2201) 4.6 G/DL 3.5-5.2 CALC GLOBULIN (test code = 2240) 2.6 G/DL 1.9-3.7 CALC A/G RATIO (test code = 2234) 1.8 RATIO 1.0-2.6 BILIRUBIN, TOTAL (test code = 2207) 0.6 MG/DL See_Comment [Automated me ssage] The system which generated this result transmitted reference range: <=1.2. The reference range was not used to interpret this result as normal/abnormal. ALKALINE PHOSPHATASE (test code = 2204) 66 U/L 40-115 AST (test code = 2218) 10 U/L 9-40 ALT (test code = 2219) 13 U/L 5-40 CBC W/AUTO DIFF WITH [id number] 02:50:58* Test Item Value Reference Range Interpretation Comme nts WBC (test code = 1001) 7.4 K/UL 3.5-11.0 RBC (test code = 1002) 4.31 M/UL 3.80-5.40 HEMOGLOBIN (test code = 1003) 12.5 G/DL 11.5-15.5 HEMATOCRIT (test code = 1004) 37.8 % 34.0-45.0 MCV (test code = 1005) 87.7 fL 80.0-99.0 MCH (test code = 1006) 29.0 PG 25.0-33.0 MCHC (test code = 1007) 33.1 G/DL 31.0-36.0 RDW (test code = 1038) 12.5 % 11.5-15.0 NEUTROPHILS (test code = 1008) 75.9 % LYMPHOCYTES (test code = 1010) 16.7 % MONOCYTES (test code = 1011) 5.7 % EOSINOPHILS (test code = 1012) 0.5 % BASOPHILS (test code = 1013) 0.8 % IMMATURE GRANULOCYTES (test code = 1036) 0.4 % NUCLEATED RBCS (test code = 1065) 0.0 /100 WBC'S See_Comment [Automated messa ge] The system which generated this result transmitted reference range: 0.0. The reference range was not used to interpret this result as normal/abnormal. PLATELET COUNT (test code = 1015) 276 K/UL 130-400 ABSOLUTE NEUTROPHILS (test code = 1066) 5.63 K/UL 1.50-7.50 ABSOLUTE LYMPHOCYTES (test code = 1067) 1.24 K/UL 1.00-4.00 ABSOLUTE MONOCYTES (test code = 1068) 0.42 K/UL 0.20-1.00 ABSOLUTE EOSINOPHILS (test code = 1040) 0.04 K/UL 0.00-0.50 ABSOLUTE BASOPHILS (test code = 1069) 0.06 K/UL 0.00-0.20 ABS IMMATURE GRANULOCYTES (test code = 1020) 0.03 K/UL 0.00-0.10 ABS NUCLEATED RBCS (test code = 94062) 0.00 K/UL 0.00-0.11
[2024-07-03] MEDS ORDERED: dexAMETHasone 10 MG/ML VIAL ONE (12:38)
[2024-07-03] MEDS ORDERED: METOCLOPRAMIDE 10 MG/2mL INJ ONE (12:39)
[2024-07-03] MEDS ORDERED: KETOROLAC 30 MG/ML INJ ONE (12:39)
[2024-07-03] MEDS ORDERED: NA CHLORIDE 0.9% 500 ML ONE (12:40)
[2024-07-03] MEDS ORDERED: NA CHLORIDE 0.9% 50 ML ONE (12:40)
[2024-07-03] MEDS ORDERED: DIPHENHYDRAMINE 50 MG/ML VIAL ONE (12:40)
--- NOTE | 2024-07-03 13:15 | EDPHYS ---
Physician Documentation [facility] Name: Sujey Cardoso Age: 23 yrs Sex: Female : 2000 Arrival Date: 07/03/2024 Time: 12:08 Bed 17 Private MD: [facility] ED Physician Guevara Giraldo HPI: 07/03 12:22 This 23 yrs old Female presents to ER via Ambulatory with complaints of ms3 Headache. 12:22 Sujey Cardoso is a 23-year-old female who presents to the Emergency Department ms3 with headaches. She describes the pain as throbbing, rating it a 6 out of 10 after taking Tylenol, which provided slight relief. She reports no numbness, weakness, fever, or chills. Sujey has a history of similar headaches. . Historical: - Allergies: 12:14 Zithromax; iw - Home Meds: 12:14 None [Active]; iw - PMHx: 12:14 None; iw - PSHx: 12:14 I\T\D; iw - Immunization history:: Adult Immunizations not up to date. - Infectious Disease History:: Denies. - Social history:: Smoking status: Patient denies any tobacco usage or history of. ROS: 12:22 Constitutional: Negative for fever, and chills. Cardiovascular: Negative for chest ms3 pain, and palpitations. Respiratory: Negative for shortness of breath, cough, wheezing, and pleuritic chest pain, MS/Extremity: Negative for injury and deformity, Skin: Negative for injury, rash, and discoloration, 12:22 Abdomen/GI: Positive for nausea, 12:22 Neuro: Positive for headache, Exam: 12:22 Constitutional: This is a well developed, well nourished patient who is awake, alert, ms3 and in no acute distress. Head/Face: Normocephalic, atraumatic. Neck: Trachea midline, no cervical lymphadenopathy. Supple, full range of motion without nuchal rigidity, or vertebral point tenderness. No Meningismus. Chest/axilla: Normal chest wall appearance and motion. Nontender with no deformity. Cardiovascular: Regular rate and rhythm with a normal S1 and S2. No gallops, murmurs, or rubs. Normal PMI, no JVD. No pulse deficits. Respiratory: Lungs have equal breath sounds bilaterally, clear to auscultation and percussion. No rales, rhonchi or wheezes noted. No increased work of breathing, no retractions or nasal flaring. Abdomen/GI: Soft, non-tender, with normal bowel sounds. No distension or tympany. No guarding or rebound. No evidence of tenderness throughout. Skin: Warm, dry with normal turgor. Normal color with no rashes, no lesions, and no evidence of cellulitis. Neuro: Awake and alert, GCS 15, oriented to person, place, time, and situation. Cranial nerves II-XII grossly intact. Motor strength 5/5 in all extremities. Sensory grossly intact. Cerebellar exam normal. Normal gait. Vital Signs: 12:13 BP 134 / 75; Pulse 74; Resp 16; Temp 98.3; Pulse Ox 100% on R/A; Weight 72.57 kg; iw Height 5 ft. 2 in. ; Pain 7/10; 12:44 BP 107 / 64; Pulse 63; Resp 16; Pulse Ox 99% ; db 13:31 BP 104 / 67; Pulse 61; Resp 16; Pulse Ox 100% on R/A; db 12:13 Body Mass Index 29.26 (72.57 kg, 157.48 cm) iw 12:13 Pain Scale: Adult iw MDM: 12:21 Medical Screening Exam initiated ms3 12:22 Differential diagnosis: migraine, sinusitis, tension headache. ms3 16:21 Data reviewed: vital signs, nurses notes, and as a result, I will discharge patient. I ms3 considered the following discharge prescriptions or medication management in the emergency department Medications were administered in the Emergency Department. See MAR. Counseling: I had a detailed discussion with the patient and/or guardian regarding the historical points, exam findings, and any diagnostic results supporting the discharge/admit diagnosis, the need for outpatient follow up, to return to the emergency department if symptoms worsen or persist or if there are any questions or concerns that arise at home. Response to treatment: the patient's symptoms have markedly improved after treatment, and as a result, I will discharge patient. Special discussion: I discussed with the patient/guardian in detail that at this point there is no indication for admission to the hospital. It is understood, however, that if the symptoms persist or worsen the patient needs to return immediately for re-evaluation. ED course: On reevaluation patient symptoms improved, patient is alert and oriented x 4, no apparent distress, nontoxic-appearing, speaking full sentences, ambulatory in the emergency department. Patient to follow-up with PMD in 2 to 3 days. Patient understands and agrees with plan. All questions were answered. Return precautions discussed include worsening symptoms, or any other concerns.. Administered Medications: 12:45 Drug: diphenhydrAMINE IVP 25 mg IVP once Route: IVP; Site: right antecubital; db 13:32 Follow up: Response: No adverse reaction db 12:45 Drug: NS 0.9% IV 500 ml 500 ml IV at 1 bolus once; to be given as a bolus over 30 db minutes Volume: 500 ml; Route: IV; Rate: 1 bolus; Site: right antecubital; 13:32 Follow up: Response: No adverse reaction; IV Status: Completed infusion; IV Intake: db 500ml 12:46 Drug: Decadron - Dexamethasone IVP 10 mg IVP once Route: IVP; Site: right antecubital; db 13:32 Follow up: Response: No adverse reaction db 12:47 Drug: Ketorolac IVP 10 mg 10 mg IVP once Route: IVP; Site: right antecubital; db 13:32 Follow up: Response: No adverse reaction db 12:48 Drug: metoCLOPramide IVP 10 mg IVP once; over 1 to 2 minutes Route: IVP; Site: right db antecubital; 13:32 Follow up: Response: No adverse reaction db Disposition Summary: 07/03/24 13:14 Discharge Ordered Notes: Location: Home ms3 Condition: Stable ms3 Diagnosis - Headache ms3 Followup: ms3 - With: Ronnie Valenzuela DO - When: 2 - 3 days - Reason: Re-evaluation by your physician Discharge Instructions: - Discharge Summary Sheet ms3 - General Headache Without Cause ms3 Forms: - Medication Reconciliation Form ms3 - Antibiotic Education ms3 - Prescription Opioid Use ms3 - Patient Portal Instructions ms3 - Leadership Thank You Letter ms3 Signatures: Urszula Silva RN MELODIE iw Guevara Giraldo DO DO ms3 Gisele Hoffmann RN RN db
--- NOTE | 2024-07-03 13:15 | ER ---
Nurse's Notes [facility] Name: Sujey Cardoso Age: 23 yrs Sex: Female : 2000 Arrival Date: 07/03/2024 Time: 12:08 Bed 17 [facility] Headache Presentation: 07/03 12:13 Chief complaint: Patient states: bad headache for a few days, pain is worse today , iw feels light headed and nauseous , has had similar headaches in the past. Coronavirus screen: At this time, the client does not indicate any symptoms associated with coronavirus-19. Ebola Screen: No symptoms or risks identified at this time. Initial Sepsis Screen: Does the patient meet any 2 criteria? No. Patient's initial sepsis screen is negative. Does the patient have a suspected source of infection? No. Patient's initial sepsis screen is negative. Risk Assessment: Do you want to hurt yourself or someone else? Patient reports no desire to harm self or others. Onset of symptoms was June 29, 2024. 12:13 Method Of Arrival: Ambulatory iw 12:13 Acuity: DONN 3 iw Historical: - Allergies: 12:14 Zithromax; iw - Home Meds: 12:14 None [Active]; iw - PMHx: 12:14 None; iw - PSHx: 12:14 I\T\D; iw - Immunization history:: Adult Immunizations not up to date. - Infectious Disease History:: Denies. - Social history:: Smoking status: Patient denies any tobacco usage or history of. Screenin:55 [facility] ED Fall Risk Assessment (Adult) History of falling in the last 3 months, db including since admission No falls in past 3 months (0 pts) Confusion or Disorientation No (0 pts) Intoxicated or Sedated No (0 pts) Impaired Gait No (0 pts) Mobility Assist Device Used No (0 pt) Altered Elimination No (0 pt) Score/Fall Risk Level 0 - 2 = Low Risk Oriented to surroundings, Maintained a safe environment. Abuse screen: Denies threats or abuse. Denies injuries from another. Nutritional screening: No deficits noted. Tuberculosis screening: No symptoms or risk factors identified. Assessment: 12:54 Reassessment: Patient appears in no apparent distress at this time. Patient and/or db family updated on plan of care and expected duration. Pain level reassessed. Patient is alert, oriented x 3, equal unlabored respirations, skin warm/dry/pink. General: Appears in no apparent distress. comfortable, Behavior is calm, cooperative. Pain: Complains of pain in head. Neuro: Level of Consciousness is awake, alert, obeys commands, Oriented to person, place, time, situation. Respiratory: Airway is patent Respiratory effort is even, unlabored, Respiratory pattern is regular, symmetrical. 13:31 Reassessment: Patient appears in no apparent distress at this time. Patient and/or db family updated on plan of care and expected duration. Pain level reassessed. Patient is alert, oriented x 3, equal unlabored respirations, skin warm/dry/pink. Patient states feeling better. Patient states symptoms have improved. Vital Signs: 12:13 BP 134 / 75; Pulse 74; Resp 16; Temp 98.3; Pulse Ox 100% on R/A; Weight 72.57 kg; iw Height 5 ft. 2 in. ; Pain 7/10; 12:44 BP 107 / 64; Pulse 63; Resp 16; Pulse Ox 99% ; db 13:31 BP 104 / 67; Pulse 61; Resp 16; Pulse Ox 100% on R/A; db 12:13 Body Mass Index 29.26 (72.57 kg, 157.48 cm) iw 12:13 Pain Scale: Adult iw ED Course: 12:09 Patient arrived in ED. as 12:12 [facility] is Private Physician. as 12:14 Triage completed. iw 12:14 Guevara Giraldo DO is Attending Physician. ms3 12:15 Arm band placed on. iw 12:27 Gisele Hoffmann, RN is Primary Nurse. db 12:30 Inserted saline lock: 20 gauge in right antecubital area, using aseptic technique. db Blood collected. Flushed with 10 mL NS. 12:55 Patient has correct armband on for positive identification. Bed in low position. Call db light in reach. Side rails up X 1. Pulse ox on. NIBP on. Pillow given. 13:14 Ronnie Valenzuela DO is Referral Physician. ms3 13:31 Provided Education on: DISCHARGE AND FOLLOWUP. db 13:31 No provider procedures requiring assistance completed. IV discontinued, intact, db bleeding controlled, No redness/swelling at site. Administered Medications: 12:45 Drug: diphenhydrAMINE IVP 25 mg IVP once Route: IVP; Site: right antecubital; db 13:32 Follow up: Response: No adverse reaction db 12:45 Drug: NS 0.9% IV 500 ml 500 ml IV at 1 bolus once; to be given as a bolus over 30 db minutes Volume: 500 ml; Route: IV; Rate: 1 bolus; Site: right antecubital; 13:32 Follow up: Response: No adverse reaction; IV Status: Completed infusion; IV Intake: db 500ml 12:46 Drug: Decadron - Dexamethasone IVP 10 mg IVP once Route: IVP; Site: right antecubital; db 13:32 Follow up: Response: No adverse reaction db 12:47 Drug: Ketorolac IVP 10 mg 10 mg IVP once Route: IVP; Site: right antecubital; db 13:32 Follow up: Response: No adverse reaction db 12:48 Drug: metoCLOPramide IVP 10 mg IVP once; over 1 to 2 minutes Route: IVP; Site: right db antecubital; 13:32 Follow up: Response: No adverse reaction db Medication: 13:31 VIS not applicable for this client. db Intake: 13:32 IV: 500ml; Total: 500ml. db Outcome: 13:14 Discharge ordered by . ms3 13:31 Discharged to home ambulatory, db 13:31 Condition: stable 13:31 Discharge instructions given to patient, Instructed on discharge instructions, follow up and referral plans. 13:32 Patient left the ED. db Signatures: Tess Olivares Irene, RN RN iw Guevara Giraldo DO DO ms3 Gisele Hoffmann, MELODIE RN db
[2024-07-03 13:46] VITALS: TEMP 98.3
[2024-07-03 13:58] VITALS: BP 104/67; O2SAT 100
== END 2024-07-03 13:32 | disposition home or self-care (01) ==
LOC: ER 12:08
DX: R51.9 Headache, unspecified (principal)
CPT/HCPCS: 96361; 96374; 96375; 99284; J1100; J1200; J2765; J7040